=== PATIENT | male | born 1985 | race African-American/Black ===

== ENCOUNTER 2016-12-30 05:32 | Emergency (ER) | payer SELFPAY ==
[~2016-12-30] VITALS: Ht 185.4 cm; Wt 97.4 kg
[2016-12-30 05:40] VITALS: BP 164/91; PULSE 84; RESP 16; TEMP 97.8; O2SAT 99
--- NOTE | 2016-12-30 06:18 | PD ---
HPI Chief Complaint: Abdominal Pain Time Seen by Provider: 06:01 Travel History International Travel<30 days: No Contact w/Intl Traveler<30days: No Traveled to known affect area: No History of Present Illness HPI The patient is a 4-year-old male that complains of bilateral suprapubic pain for 2 days, right greater than left. He has never had any abdominal surgeries and still has his appendix and gallbladder. He denies any dysuria, frequency or urgency. He denies any nausea or vomiting or fever or diarrhea but does have decreased appetite. He does have a past history of alcohol and marijuana abuse. He states his last beer was yesterday. He states he has had this pain before but it has not been this bad and is gone away on its own. His pain level is a 7/10 and a heavy, fullness type of discomfort. His last meal was at 8 PM yesterday and only half of a sub. He normally eats much more than this he states. PFSH Past Medical History Blood Disorders: No Cancer: No Cardiovascular Problems: No Cerebrovascular Accident: No Diabetes: No Diminished Hearing: No Endocrine: No Gastrointestinal Disorders: No Genitourinary: No Hepatitis: No Hiatal Hernia: No Hypertension: No Immune Disorder: No Inguinal Hernia: Yes Medical other: No Musculoskeletal: No Neurologic: No Psychiatric: No Reproductive: No Respiratory: No Myocardial Infarction: No Renal Failure: No Thyroid Disease: No Ulcer: No ?: Not Past Surgical History Abdominal Surgery: Yes (RIH REPAIR 15 YEARS AGO) AICD: No Joint Replacement: No Pacemaker: No Other Surgery: Yes Social History Alcohol Use: Yes (OCCASIONALLY) Tobacco Use: Yes (1 PPD) Substance Use: Yes (MARIJUANA) Allergies-Medications (Allergen,Severity, Reaction): Coded Allergies: No Known Allergies (Verified Adverse Reaction, Unknown, 12/30/16) PT REPORTS NO KNOWN ALLERGIES Reported Meds & Prescriptions Reported Meds & Active Scripts Active No Active Prescriptions or Reported Medications Review of Systems Except as stated in HPI: all other systems reviewed are Neg Physical Exam Narrative GENERAL: SKIN: Focused skin assessment warm/dry. HEAD: Atraumatic. Normocephalic. EYES: Pupils equal and round. No scleral icterus. No injection or drainage. ENT: No nasal bleeding or discharge. Mucous membranes pink and moist. NECK: Trachea midline. No JVD. CARDIOVASCULAR: Regular rate and rhythm. No murmur appreciated. RESPIRATORY: No accessory muscle use. Clear to auscultation. Breath sounds equal bilaterally. GASTROINTESTINAL: Abdomen soft, non-tender, nondistended. Hepatic and splenic margins not palpable. MUSCULOSKELETAL: No obvious deformities. No clubbing. No cyanosis. No edema. NEUROLOGICAL: Awake and alert. No obvious cranial nerve deficits. Motor grossly within normal limits. Normal speech. PSYCHIATRIC: Appropriate mood and affect; insight and judgment normal. Data Data Last Documented VS Vital Signs Date Time Temp Pulse Resp B/P (MAP) Pulse Ox O2 Delivery O2 Flow Rate FiO2 12/30/16 05:40 97.8 84 16 164/91 (115) 99 Orders Orders Complete Blood Count With Diff (12/30/16 06:18) Comprehensive Metabolic Panel (12/30/16 06:18) Urinalysis - C+S If Indicated (12/30/16 06:18) Ct Abd/Pel W Iv Contrast(Rout) (12/30/16 06:22) Iohexol 350 Inj (Omnipaque 350 Inj) (12/30/16 06:43) Sodium Chlor 0.9% 1000 Ml Inj (Ns 1000 M (12/30/16 07:00) Ondansetron Inj (Zofran Inj) (12/30/16 07:00) Labs Laboratory Tests Test 12/30/16 04:15 White Blood Count 5.2 TH/MM3 Red Blood Count 5.10 MIL/MM3 Hemoglobin 15.3 GM/DL Hematocrit 45.5 % Mean Corpuscular Volume 89.3 FL Mean Corpuscular Hemoglobin 30.0 PG Mean Corpuscular Hemoglobin Concent 33.6 % Red Cell Distribution Width 12.5 % Platelet Count 288 TH/MM3 Mean Platelet Volume 7.4 FL Neutrophils (%) (Auto) 48.1 % Lymphocytes (%) (Auto) 35.5 % Monocytes (%) (Auto) 9.0 % Eosinophils (%) (Auto) 6.5 % Basophils (%) (Auto) 0.9 % Neutrophils # (Auto) 2.6 TH/MM3 Lymphocytes # (Auto) 1.8 TH/MM3 Monocytes # (Auto) 0.5 TH/MM3 Eosinophils # (Auto) 0.3 TH/MM3 Basophils # (Auto) 0.0 TH/MM3 CBC Comment DIFF FINAL Differential Comment Urine Color YELLOW Urine Turbidity CLEAR Urine pH 6.0 Urine Specific [place] 1.022 Urine Protein TRACE mg/dL Urine Glucose (UA) NEG mg/dL Urine Ketones NEG mg/dL Urine Occult Blood TRACE Urine Nitrite NEG Urine Bilirubin NEG Urine Leukocyte Esterase NEG Urine RBC 0-3 /hpf Urine Squamous Epithelial Cells 0-5 /hpf Urine Mucus MOD /lpf Microscopic Urinalysis Comment CULT NOT INDICATED Blood Urea Nitrogen 11 MG/DL Creatinine 0.91 MG/DL Random Glucose 109 MG/DL Total Protein 8.0 GM/DL Albumin 4.0 GM/DL Calcium Level 8.3 MG/DL Alkaline Phosphatase 60 U/L Aspartate Amino Transf (AST/SGOT) 44 U/L Alanine Aminotransferase (ALT/SGPT) 38 U/L Total Bilirubin 0.6 MG/DL Sodium Level 139 MEQ/L Potassium Level 3.4 MEQ/L Chloride Level 107 MEQ/L Carbon Dioxide Level 25.6 MEQ/L Anion Gap 6 MEQ/L Estimat Glomerular Filtration Rate 119 ML/MIN [facility] Medical Decision Making Medical Screen Exam Complete: Yes Emergency Medical Condition: Yes Medical Record Reviewed: Yes Interpretation(s) The CT abdomen/pelvis is normal. The CBC is normal. The urine shows trace occult blood but is otherwise normal and culture is not indicated. Differential Diagnosis Abdominal pain etiology undetermined, urinary tract infection, urinary stone- unlikely, appendicitis, colitis Narrative Course The patient has abdominal pain etiology undetermined. Plan: He'll be given Phenergan, clear liquids and Motrin 800 mg 3 times daily. Diagnosis Primary Impression: Abdominal pain of unknown etiology Additional Instructions: Increase clear liquid intake and take the Motrin one tablet 3 times daily. The nausea medicine as one every 6 hours as needed. Med/Other Pt SpecificInfo: Prescription(s) given Scripts Ibuprofen (Ibuprofen) 800 Mg Tab 800 MG PO TID, #33 TAB 0 Refills Prov: Ivan Brown MD 12/30/16 Promethazine (Phenergan) 25 Mg Tablet 25 MG PO Q6H Y for NAUSEA OR VOMITING, #21 TAB 0 Refills Prov: Ivan Brown MD 12/30/16 Disposition: 01 DISCHARGE HOME Condition: Stable Ivan Brown MD Dec 30, 2016 06:17
[2016-12-30 06:32] LABS: AUTOMATED NEUTROPHIL # 2.6 TH/MM3 (1.8-7.7); BASOPHIL % 0.9 % (0.0-2.0); EOSINOPHIL # 0.3 TH/MM3 (0-0.4); EOSINOPHIL % 6.5 % (0.0-4.0); HEMATOCRIT 45.5 % (39.0-51.0); HEMO FLAGS DIFF FINAL; LYMPH % 35.5 % (9.0-44.0); LYMPHOCYTE # 1.8 TH/MM3 (1.0-4.8); MEAN CELL VOLUME 89.3 FL (80.0-100.0); MEAN CORPUSCULAR HGB CONC 33.6 % (32.0-36.0); NEUT % 48.1 % (16.0-70.0); PLATELET COUNT 288 TH/MM3 (150-450); RED CELL DISTRIBUTION WIDTH 12.5 % (11.6-17.2); WHITE BLOOD COUNT 5.2 TH/MM3 (4.0-11.0)
[2016-12-30 06:39] LABS: CHLORIDE 107 MEQ/L (98-107); GLUCOSE,URINE NEG (NEG); KETONE, URINE NEG (NEG); NITRITE,URINE NEG (NEG); POTASSIUM 3.4 MEQ/L (3.5-5.1); SODIUM (NA) 139 MEQ/L (136-145)
[2016-12-30 06:42] LABS: ANION GAP 6 MEQ/L (5-15); BICARBONATE 25.6 MEQ/L (21.0-32.0); BLOOD UREA NITROGEN 11 MG/DL (7-18)
[2016-12-30] MEDS ORDERED: IOHEXOL 350 MG/ML 10 ML VIAL (for RAD DIAG) IVCONTRAST ONE (06:43)
[2016-12-30 06:44] LABS: BLOOD, URINE TRACE (NEG)
[2016-12-30 06:45] LABS: ALT (GPT) 38 U/L (12-78); AST (GOT) 44 U/L (15-37); URINE COLOR YELLOW (YELLW/STRAW)
[2016-12-30 06:46] LABS: COMMENT (UR) CULT NOT INDICATED; CULTURE IF INDICATED CULT NOT INDICATED; GLOMERULAR FILTRATION RATE 119 ML/MIN (>89); MUCUS URINE MOD /lpf (OCC); RBC, URINE 0-3 /hpf (0-3); SQUAMOUS EPITHELIAL CELL URINE 0-5 /hpf (0-5)
[2016-12-30 06:47] LABS: TOTAL BILIRUBIN ADULT 0.6 MG/DL (0.2-1.0)
[2016-12-30 06:48] LABS: ALKALINE PHOSPHATASE 60 U/L (45-117)
--- NOTE | 2016-12-30 06:57 | RADRPT ---
EXAM DATE/TIME: 12/30/2016 06:37 [facility] COMPARISON: CT ABDOMEN & PELVIS W CONTRAST, June 07, 2011, 20:33. INDICATIONS : Right suprapubic pain. IV CONTRAST: 100 cc Omnipaque 350 (iohexol) IV ORAL CONTRAST: No oral contrast ingested. RADIATION DOSE: 11.71 CTDIvol (mGy) MEDICAL HISTORY : Hernia, inguinal. SURGICAL HISTORY : Inguinal hernia repair. ENCOUNTER: Initial ACUITY: 2 days PAIN SCALE: 7/10 LOCATION: Right lower quadrant TECHNIQUE: Volumetric scanning of the abdomen and pelvis was performed. Using automated exposure control and ad justment of the mA and/or kV according to patient size, radiation dose was kept as low as reasonably achievable to obtain optimal diagnostic quality images. DICOM format image data is available electro nically for review and comparison. FINDINGS: Liver, gallbladder, spleen, pancreas, adrenals, kidneys are unremarkable. Appendix normal. Urinary bl adder, prostate, small bowel and large bowel unremarkable. Stomach normal. There is no lymphadenopath y. No aneurysm. Lung bases are clear. Osseous structures are intact. CONCLUSION: Normal examination. Slava Jolly MD on December 30, 2016 at 6:54 Board Certified Radiologist. This report was verified electronically.
[2016-12-30] MEDS ORDERED: ONDANSETRON HCL 4 MG/2 ML VIAL IV ONE (07:00)
[2016-12-30] MEDS ORDERED: SODIUM CHLOR 0.9% 1000 ML INJ 1,000 ML IV SCH (07:00)
[2016-12-30 07:05] VITALS: BP 135/82; PULSE 78; RESP 18; O2SAT 99
[2016-12-30] MEDS ORDERED: PROM25TA10 PO (07:09)
[2016-12-30] MEDS ORDERED: IBUP1TAB7 PO (07:09)
[2016-12-30] MEDS ORDERED: KETOROLAC TROMETHAMINE 60 MG/2 ML (IM) VIAL IVP ONE (07:15)
== END 2016-12-30 07:38 | disposition home or self-care (01) ==
LOC: PHED 05:32
DX: F17.210 Nicotine dependence, cigarettes, uncomplicated (principal); F12.90 Cannabis use, unspecified, uncomplicated; R10.9 Unspecified abdominal pain
CPT/HCPCS: 74177; 80053; 81001; 85025; 96374; 96375; 99285; J1885; J2405; J7030; Q9967

== ENCOUNTER 2017-04-02 03:12 | Emergency (ER) | payer SELFPAY ==
[~2017-04-02] VITALS: Ht 182.9 cm; Wt 90.0 kg
[~2017-04-02 03:12] MED LIST: IBUP1TAB7 PO; PROM25TA10 PO
[2017-04-02 03:14] VITALS: BP 140/91; PULSE 95; RESP 20; TEMP 97.4; O2SAT 98
[2017-04-02] MEDS ORDERED: TETANUS/DIPHTHERIA TOXOID ADULT 0.5 ML VIAL IM ONE (03:30)
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
[2017-04-02] MEDS ORDERED: LIDOCAINE 2%/EPINEPHrine 1:100,000 20ML MDV NERV BLOCK ONE (04:15)
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
== END 2017-04-02 05:06 | disposition home or self-care (01) ==
LOC: NEPC 03:12
DX: S01.81XA Laceration without foreign body of other part of head, initial encounter (principal); S01.01XA Laceration without foreign body of scalp, initial encounter; Y00.XXXA Assault by blunt object, initial encounter; Y92.29 Other specified public building as the place of occurrence of the external cause; F17.290 Nicotine dependence, other tobacco product, uncomplicated; Z23 Encounter for immunization
CPT/HCPCS: 12002; 12013; 70450; 90471; 90714

== ENCOUNTER 2017-04-12 11:49 | Emergency (ER) | payer SELFPAY ==
[2017-04-12 11:50] VITALS: BP 128/82; PULSE 89; RESP 16; TEMP 98.4; O2SAT 98
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
== END 2017-04-12 12:55 | disposition home or self-care (01) ==
LOC: NEPK 11:49
DX: Z48.02 Encounter for removal of sutures (principal)
CPT/HCPCS: 99281

== ENCOUNTER 2017-06-24 05:00 | Emergency (ER) | payer OTHER ==
[~2017-06-24] VITALS: Ht 185.4 cm; Wt 95.0 kg
[2017-06-24 05:09] VITALS: BP 167/93; PULSE 102; RESP 12; TEMP 98.6; O2SAT 95
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
[2017-06-24 05:46] VITALS: BP 95/55; PULSE 96; RESP 20; TEMP 98.9; O2SAT 97
[2017-06-24 06:02] LABS: AUTOMATED NEUTROPHIL # 5.2 TH/MM3 (1.8-7.7); BASOPHIL # 0.1 TH/MM3 (0-0.2); BASOPHIL % 0.9 % (0.0-2.0); EOSINOPHIL # 0.3 TH/MM3 (0-0.4); EOSINOPHIL % 3.3 % (0.0-4.0); HEMATOCRIT 44.3 % (39.0-51.0); HEMOGLOBIN 15.5 GM/DL (13.0-17.0); LYMPH % 23.9 % (9.0-44.0); LYMPHOCYTE # 1.9 TH/MM3 (1.0-4.8); MEAN CELL VOLUME 90.4 FL (80.0-100.0); MEAN CORPUSCULAR HEMOGLOBIN 31.7 PG (27.0-34.0); MEAN CORPUSCULAR HGB CONC 35.1 % (32.0-36.0); MEAN PLATELET VOLUME 7.5 FL (7.0-11.0); MONO % 7.6 % (0.0-8.0); MONOCYTE # 0.6 TH/MM3 (0-0.9); NEUT % 64.3 % (16.0-70.0); PLATELET COUNT 276 TH/MM3 (150-450); RED CELL DISTRIBUTION WIDTH 13.7 % (11.6-17.2)
[2017-06-24 06:20] LABS: ALT (GPT) 28 U/L (12-78); AST (GOT) 22 U/L (15-37); BICARBONATE 19.7 MEQ/L (21.0-32.0); BLOOD UREA NITROGEN 8 MG/DL (7-18); CALCIUM 8.5 MG/DL (8.5-10.1); CHLORIDE 109 MEQ/L (98-107); CREATININE 0.91 MG/DL (0.60-1.30); GLOMERULAR FILTRATION RATE 118 ML/MIN (>89); GLUCOSE,RANDOM 76 MG/DL (74-106); SODIUM (NA) 141 MEQ/L (136-145)
[2017-06-24 06:22] LABS: ALKALINE PHOSPHATASE 55 U/L (45-117); TOTAL BILIRUBIN ADULT 0.3 MG/DL (0.2-1.0); TOTAL PROTEIN 8.2 GM/DL (6.4-8.2)
[2017-06-24] MEDS ORDERED: POTASSIUM CHLORIDE 10 MEQ CONTROLLED RELEASE TAB PO ONE (06:30)
[2017-06-24 06:35] LABS: ACETAMINOPHEN LESS THAN 2.0 MCG/ML (10.0-30.0)
--- NOTE | 2017-06-24 16:09 | PD ---
Physical Exam Date Seen by Provider: June 24, 2017 Time Seen by Provider: 16:08 Narrative 32-year-old male previously Farrell acted, and medically clear for psychiatric evaluation, has been seen by the psychiatric staff and deemed psychiatrically stable for discharge at this time. Patient remains medically stable for discharge at this time. Follow-up will be based on psychiatric recommendation. Data Data Last Documented VS Vital Signs Date Time Temp Pulse Resp B/P (MAP) Pulse Ox O2 Delivery O2 Flow Rate FiO2 06/24/17 16:05 06/24/17 05:46 98.9 96 20 97 Room Air Orders Orders Complete Blood Count With Diff (06/24/17 05:12) Comprehensive Metabolic Panel (06/24/17 05:12) Psych Screen (06/24/17 05:12) Drug Screen, Random Urine (06/24/17 05:12) Alcohol (Ethanol) (06/24/17 05:12) Salicylates (Aspirin) (06/24/17 05:12) Tylenol (Acetaminophen) (06/24/17 05:12) Diet Regular Basic (06/24/17 Breakfast) Potassium Chloride (Kcl) (06/24/17 06:30) Diet Regular Basic (06/24/17 Lunch) Diet Regular Basic (06/24/17 Dinner) Labs Laboratory Tests Test 06/24/17 05:30 06/24/17 09:00 White Blood Count 8.0 TH/MM3 Red Blood Count 4.90 MIL/MM3 Hemoglobin 15.5 GM/DL Hematocrit 44.3 % Mean Corpuscular Volume 90.4 FL Mean Corpuscular Hemoglobin 31.7 PG Mean Corpuscular Hemoglobin Concent 35.1 % Red Cell Distribution Width 13.7 % Platelet Count 276 TH/MM3 Mean Platelet Volume 7.5 FL Neutrophils (%) (Auto) 64.3 % Lymphocytes (%) (Auto) 23.9 % Monocytes (%) (Auto) 7.6 % Eosinophils (%) (Auto) 3.3 % Basophils (%) (Auto) 0.9 % Neutrophils # (Auto) 5.2 TH/MM3 Lymphocytes # (Auto) 1.9 TH/MM3 Monocytes # (Auto) 0.6 TH/MM3 Eosinophils # (Auto) 0.3 TH/MM3 Basophils # (Auto) 0.1 TH/MM3 CBC Comment DIFF FINAL Differential Comment Blood Urea Nitrogen 8 MG/DL Creatinine 0.91 MG/DL Random Glucose 76 MG/DL Total Protein 8.2 GM/DL Albumin 4.0 GM/DL Calcium Level 8.5 MG/DL Alkaline Phosphatase 55 U/L Aspartate Amino Transf (AST/SGOT) 22 U/L Alanine Aminotransferase (ALT/SGPT) 28 U/L Total Bilirubin 0.3 MG/DL Sodium Level 141 MEQ/L Potassium Level 3.3 MEQ/L Chloride Level 109 MEQ/L Carbon Dioxide Level 19.7 MEQ/L Anion Gap 12 MEQ/L Estimat Glomerular Filtration Rate 118 ML/MIN Salicylates Level 6.0 MG/DL Acetaminophen Level LESS THAN 2.0 MCG/ML Ethyl Alcohol Level 159 MG/DL Urine Opiates Screen NEG Urine Barbiturates Screen NEG Urine Amphetamines Screen NEG Urine Benzodiazepines Screen NEG Urine Cocaine Screen NEG Urine Cannabinoids Screen POS MDM Medical Record Reviewed: Yes Supervised Visit with GIRISH: Yes Narrative Course 32-year-old male previously Farrell acted, and medically clear for psychiatric evaluation, has been seen by the psychiatric staff and deemed psychiatrically stable for discharge at this time. Patient remains medically stable for discharge at this time. Follow-up will be based on psychiatric recommendation. Diagnosis Primary Impression: Medical clearance for psychiatric admission Additional Impression: Acute alcoholic intoxication Qualified Codes: F10.929 - Alcohol use, unspecified with intoxication, unspecified Referrals: [facility] (Out patient) as needed Medication Management [facility] Patient Instructions: General Instructions Departure Forms: Work Release, Enter return to work date: June 25, 2017 Tests/Procedures Scripts No Active Prescriptions or Reported Meds Disposition: 01 DISCHARGE HOME Condition: Stable Fransisco Amador June 24, 2017 16:09
--- NOTE | 2017-06-24 17:12 | PD ---
History of Present Illness Chief Complaint: Suicide Ideation/Attempt Time Seen by Provider: 15:35 Travel History International Travel<30 Days: No Contact w/Intl Traveler<30days: No Known affected area: No Legal Status Legal Status: Farrell Act Farrell Act Signed By: Dominga Valdovinos Farrell Act Comment: 2017 @ 0454 History of Present Illness: History of Present Illness HPI Patient is a 32-year-old, -Faroese, single, male with no psychiatric history presenting to the emergency department under Farrell act initiated by law enforcement in context of a verbal altercation with his girlfriend as well as in context of alcohol intoxication. It is alleged that the patient made comments to the police that he had nothing to live for. He also requested to go to alf instead of being in the hospital and that if he were to leave alf his children's mother would be . The patient was monitor and secure environment and presented no behavioral concerns, no agitation. Electronic medical record reviewed. No previous contact with [facility] psychiatry. Toxicology is positive for cannabinoids. Blood alcohol level of 159 Patient is seen with Jez PEDRO present. He is clinically sober. He is alert, oriented, dressed in hospital scrubs and maintaining basic hygiene. His speech is clear and logical, of normal rate and tone. There is no evidence of any hallucinations, no delusions, no paranoia. No significant objective clinical signs of depression or anxiety are noted. He denies any suicidal or homicidal ideation, intent or plan. He does state that he was involved in an argument with his girlfriend and he does not remember having said any statement indicating that he had plans on harming himself or anyone else. He states that had been off again about a telephone call that she overheard in which she was talking about other women. Since he has been here and the ED he has been in communication with his girlfriend and she is willing to have him come back home. The patient has been requesting to be discharged. PFSH Past Medical History AAA: No ADD: No ADHD: No Alzheimer's Disease: No Anemia: No Arthritis: No Asthma: No Atrial Fibrillation: No Autoimmune Disease: No Blood Disorders: No Bipolar Disorder: No Anxiety: No Depression: No Heart Rhythm Problems: No Cancer: No Cardiac Catheterization: No Cardiomyopathy: No Cardiovascular Problems: No Cerebral Palsy: No High Cholesterol: No Chemotherapy: No Chest Pain: No Congestive Heart Failure: No Cirrhosis: No COPD: No Cerebrovascular Accident: No Coronary Artery Disease: No Cystic Fibrosis: No Dementia: No Developmental Delay: No Diabetes: No Patient Takes Glucophage: No Dialysis: No Diminished Hearing: No Diverticulitis: No Deep Vein Thrombosis: No Fibromyalgia: No Gastrointestinal Disorders: No Genetic Disorder: No GERD: No Glaucoma: No Gout: No Genitourinary: No Headaches: No Hepatitis: No Hiatal Hernia: No Heparin Induced Thrombocytopen: No Herniated Disk: No Hypertension: No Immune Disorder: No Inguinal Hernia: No Insomnia: Yes (LAST MONTH POOR SLEEP) Kidney Stones: No Medical other: No Musculoskeletal: No Neurologic: No Parkinson's Disease: No Psychiatric: No Reproductive: No Respiratory: No Resp. Syncytial Virus (RSV): No Integumentary: No Migraines: No Myocardial Infarction: No Pancreatitis: No Pneumonia: No Radiation Therapy: No Renal Failure: No Schizophrenia: No Seizures: No Shingles: No Sickle Cell Disease: No Sleep Apnea: No Thyroid Disease: No Triglycerides - High: No Ulcer: No Tetanus Vaccination: > 5 Years Influenza Vaccination: No Past Surgical History Abdominal Aneurysm Repair: No Abdominal Surgery: No AICD: No Appendectomy: No Arteriovenous Shunt: No Cholecystectomy: No Coronary Artery Bypass Graft: No Coronary Stent: No Ear Surgery: No Endocrine Surgery: No Eye Surgery: No Genitourinary Surgery: No Gynecologic Surgery: No Insulin Pump: No Joint Replacement: No Mastectomy: No Neurologic Surgery: No Oral Surgery: No Pacemaker: No Prostatectomy: No Thoracic Surgery: No Tonsillectomy: No Tympanostomy Tube: No Valve Replacement: No Other Surgery: No Psychiatric History Psychiatric History Hx Psychiatric Treatment: DENIES any. No history of previous suicide attempt. No history of self-injurious behavior. History of Inpatient Treatment: No Guns or firearms in home: No Social History Single, lives with his girlfriend and their 2 children. He has 4 other children that are coming to live with him in 1 month. He has been living here in [place] for 6 years. He is unemployed. Hx Alcohol Use: Yes Hx Tobacco Use: No Hx Substance Use: Yes (ETOH PT STATES NO DRUGS) Substance Use Type: Alcohol Hx of Substance Use Treatment: No Family Psychiatric History Negative Allergies-Medications (Allergen,Severity, Reaction): Coded Allergies: No Known Allergies (Verified Adverse Reaction, Unknown, 12/30/16) PT REPORTS NO KNOWN ALLERGIES Reported Meds & Prescriptions Reported Meds & Active Scripts Active No Active Prescriptions or Reported Medications Review of Systems Psychiatric: DENIES: Anxiety, Confusion, Mood changes, Depression, Hallucinations, Agitation, Suicidal Ideation, Homicidal Ideation, Delusions Except as stated in HPI: all other systems reviewed are Neg Mental Status Examination Appearance: Appropriate Consciousness: Alert Orientation: x4 Motor Activity: Normal gait Speech: Unremarkable Language: Adequate Fund of Knowledge: Adequate Attention and Concentration: Adequate Memory: Unremarkable Mood: Appropriate Affect: Appropriate Thought Process & Associations: Intact, Logical, Goal directed Thought Content: Appropriate Hallucination Type: None Delusion Type: None Suicidal Ideation: No Suicidal Plan: No Suicidal Intention: No Homicidal Ideation: No Homicidal Plan: No Homicidal Intention: No Insight: Fair Judgment: Impulsive MDM Medical Decision Making Medical Record Reviewed: Yes Assessment/Plan Patient is a 32-year-old, -Faroese, single, male with no psychiatric history presenting to the emergency department under Farrell act initiated by law enforcement in context of a verbal altercation with his girlfriend as well as in context of alcohol intoxication. It is alleged that the patient made comments to the police that he had nothing to live for. He also requested to go to alf instead of being in the hospital and that if he were to leave alf his children's mother would be . The patient has been monitored until he was clinically sober he denies any suicidal or homicidal ideation, intent or plan. He did not present any evidence of unstable mental illness. He admits that he was drinking and that he does not remember statements that he made. He has been in communication with his girlfriend and she is willing to take him back home. The patient at this time does not present any criteria to remain under the Farrell act. The Farrell act as lifted. Psychiatrically clear for discharge from the ED. Orders Orders Complete Blood Count With Diff (06/24/17 05:12) Comprehensive Metabolic Panel (06/24/17 05:12) Psych Screen (06/24/17 05:12) Drug Screen, Random Urine (06/24/17 05:12) Alcohol (Ethanol) (06/24/17 05:12) Salicylates (Aspirin) (06/24/17 05:12) Tylenol (Acetaminophen) (06/24/17 05:12) Diet Regular Basic (06/24/17 Breakfast) Potassium Chloride (Kcl) (06/24/17 06:30) Diet Regular Basic (06/24/17 Lunch) Ed Discharge Order (06/24/17 16:09) Results Vital Signs Date Time Temp Pulse Resp B/P (MAP) Pulse Ox O2 Delivery O2 Flow Rate FiO2 06/24/17 16:05 06/24/17 05:46 98.9 96 20 95/55 (68) 97 Room Air 06/24/17 05:09 98.6 102 12 167/93 (117) 95 Laboratory Tests Test 06/24/17 05:30 06/24/17 09:00 White Blood Count 8.0 Red Blood Count 4.90 Hemoglobin 15.5 Hematocrit 44.3 Mean Corpuscular Volume 90.4 Mean Corpuscular Hemoglobin 31.7 Mean Corpuscular Hemoglobin Concent 35.1 Red Cell Distribution Width 13.7 Platelet Count 276 Mean Platelet Volume 7.5 Neutrophils (%) (Auto) 64.3 Lymphocytes (%) (Auto) 23.9 Monocytes (%) (Auto) 7.6 Eosinophils (%) (Auto) 3.3 Basophils (%) (Auto) 0.9 Neutrophils # (Auto) 5.2 Lymphocytes # (Auto) 1.9 Monocytes # (Auto) 0.6 Eosinophils # (Auto) 0.3 Basophils # (Auto) 0.1 CBC Comment DIFF FINAL Differential Comment Blood Urea Nitrogen 8 Creatinine 0.91 Random Glucose 76 Total Protein 8.2 Albumin 4.0 Calcium Level 8.5 Alkaline Phosphatase 55 Aspartate Amino Transf (AST/SGOT) 22 Alanine Aminotransferase (ALT/SGPT) 28 Total Bilirubin 0.3 Sodium Level 141 Potassium Level 3.3 Chloride Level 109 Carbon Dioxide Level 19.7 Anion Gap 12 Estimat Glomerular Filtration Rate 118 Salicylates Level 6.0 Acetaminophen Level LESS THAN 2.0 Ethyl Alcohol Level 159 Urine Opiates Screen NEG Urine Barbiturates Screen NEG Urine Amphetamines Screen NEG Urine Benzodiazepines Screen NEG Urine Cocaine Screen NEG Urine Cannabinoids Screen POS Diagnosis Primary Impression: Acute alcoholic intoxication Referrals: [facility] (Out patient) as needed Medication Management [facility] Departure Forms: Work Release, Enter return to work date: June 25, 2017 Tests/Procedures Patient Instructions: General Instructions Med/ Other Pt Specific Info: No Meds Exist/No RX given Prescriptions No Active Prescriptions or Reported Meds Disposition: 01 DISCHARGE HOME Condition: Stable Problem Qualifiers Primary Impression: Acute alcoholic intoxication Qualified Codes: F10.929 - Alcohol use, unspecified with intoxication, unspecified Gabbie Duval June 24, 2017 17:12
--- NOTE | 2017-06-29 15:45 | PD ---
Physical Exam Narrative Please see mid level provider note for full history, physical, and dispo. Patient presented to ER under Farrell Act for psych assessment. He was without any physical complaints. Found to have slightly decreased potassium and had oral repletion. Data Data Orders Orders Complete Blood Count With Diff (06/24/17 05:12) Comprehensive Metabolic Panel (06/24/17 05:12) Psych Screen (06/24/17 05:12) Drug Screen, Random Urine (06/24/17 05:12) Alcohol (Ethanol) (06/24/17 05:12) Salicylates (Aspirin) (06/24/17 05:12) Tylenol (Acetaminophen) (06/24/17 05:12) Diet Regular Basic (06/24/17 Breakfast) Potassium Chloride (Kcl) (06/24/17 06:30) Diet Regular Basic (06/24/17 Lunch) Ed Discharge Order (06/24/17 16:09) Labs Laboratory Tests Test 06/24/17 05:30 06/24/17 09:00 White Blood Count 8.0 TH/MM3 Red Blood Count 4.90 MIL/MM3 Hemoglobin 15.5 GM/DL Hematocrit 44.3 % Mean Corpuscular Volume 90.4 FL Mean Corpuscular Hemoglobin 31.7 PG Mean Corpuscular Hemoglobin Concent 35.1 % Red Cell Distribution Width 13.7 % Platelet Count 276 TH/MM3 Mean Platelet Volume 7.5 FL Neutrophils (%) (Auto) 64.3 % Lymphocytes (%) (Auto) 23.9 % Monocytes (%) (Auto) 7.6 % Eosinophils (%) (Auto) 3.3 % Basophils (%) (Auto) 0.9 % Neutrophils # (Auto) 5.2 TH/MM3 Lymphocytes # (Auto) 1.9 TH/MM3 Monocytes # (Auto) 0.6 TH/MM3 Eosinophils # (Auto) 0.3 TH/MM3 Basophils # (Auto) 0.1 TH/MM3 CBC Comment DIFF FINAL Differential Comment Blood Urea Nitrogen 8 MG/DL Creatinine 0.91 MG/DL Random Glucose 76 MG/DL Total Protein 8.2 GM/DL Albumin 4.0 GM/DL Calcium Level 8.5 MG/DL Alkaline Phosphatase 55 U/L Aspartate Amino Transf (AST/SGOT) 22 U/L Alanine Aminotransferase (ALT/SGPT) 28 U/L Total Bilirubin 0.3 MG/DL Sodium Level 141 MEQ/L Potassium Level 3.3 MEQ/L Chloride Level 109 MEQ/L Carbon Dioxide Level 19.7 MEQ/L Anion Gap 12 MEQ/L Estimat Glomerular Filtration Rate 118 ML/MIN Salicylates Level 6.0 MG/DL Acetaminophen Level LESS THAN 2.0 MCG/ML Ethyl Alcohol Level 159 MG/DL Urine Opiates Screen NEG Urine Barbiturates Screen NEG Urine Amphetamines Screen NEG Urine Benzodiazepines Screen NEG Urine Cocaine Screen NEG Urine Cannabinoids Screen POS MDM Supervised Visit with GIRISH: Yes Diagnosis Primary Impression: Acute alcoholic intoxication Qualified Codes: F10.929 - Alcohol use, unspecified with intoxication, unspecified Additional Impression: Hypokalemia Referrals: [facility] (Out patient) as needed Medication Management [facility] Patient Instructions: General Instructions Departure Forms: Work Release, Enter return to work date: June 25, 2017 Tests/Procedures Scripts No Active Prescriptions or Reported Meds Disposition: 01 DISCHARGE HOME Condition: Stable Lisa Rahman MD June 29, 2017 15:45
== END 2017-06-24 16:15 | disposition home or self-care (01) ==
LOC: NEPJ 05:00
DX: F10.129 Alcohol abuse with intoxication, unspecified (principal); E87.6 Hypokalemia; Y90.6 Blood alcohol level of 120-199 mg/100 ml
CPT/HCPCS: 80053; 80307; 85025; 99283